=== PATIENT | male | born 1960 | race American Indian/Alaskan Native ===

== ENCOUNTER 2016-11-24 13:53 | Outpatient (CLI) | payer BC ==
--- NOTE | 2016-11-24 14:46 | XRay Report ---
BILATERAL KNEE PAIN INDICATION: Chronic pain of right knee. COMPARISON: None similar. FINDINGS: AP, lateral and oblique bilateral knee radiographs demonstrate diffuse degenerative spurring, right more than left. Moderate to severe right and mild left knee medial compartment narrowing also seen. No right suprapatellar effusion. Mild/subtle left suprapatellar soft tissue swelling or effusion though not entirely excluded. Possible osteopenia. CONCLUSION: Moderate to severe right and mild left knee osteoarthrosis, as described. Thank you for the opportunity to participate in this patient's care.
== END 2016-11-24 13:54 | disposition home or self-care (01) ==
LOC: XRAY 13:53
PROVIDERS: ATTEND Internal Medicine
DX: M17.0 Bilateral primary osteoarthritis of knee (principal)